=== PATIENT | female | born 1965 | race Native Hawaiian/Other Pacific Islander ===

== ENCOUNTER 2018-10-15 18:20 | Emergency (ER) | payer OTHER ==
[~2018-10-15] VITALS: Ht 161.3 cm; Wt 67.1 kg
[2018-10-15] MEDS ORDERED: WELLBUTRIN100 M1 PO (18:48)
[2018-10-15] MEDS ORDERED: COZAAR25 MG PO (18:48)
[2018-10-15 21:01] LABS: PLATELET COUNT 231 K/uL (152-353)
[2018-10-15 21:13] LABS: POTASSIUM 3.6 mmol/L (3.6-5.2)
[2018-10-15 22:45] VITALS: BP 122/69; TEMP 98.3
== END 2018-10-15 22:45 | disposition home or self-care (01) ==
LOC: ED 18:20
PROVIDERS: Internal Medicine
DX: K52.89 Other specified noninfective gastroenteritis and colitis (principal); R11.2 Nausea with vomiting, unspecified; R10.9 Unspecified abdominal pain
CPT/HCPCS: 36415; 74022; 80053; 85027; 96360; 96365; 96374; 99284; J2405; J2550